=== PATIENT | female | born 2000 | race Caucasian/White ===

== ENCOUNTER 2024-02-06 05:45 | Inpatient (IN) | payer OTHER ==
[2024-02-06 06:44] VITALS: BMI 35.2
[2024-02-06] MEDS ORDERED: Docusate 100 MG CAP PO PRN (07:05)
[2024-02-06] MEDS ORDERED: HYDROcodone/Acetaminophen 5/325 mg Tablet PO PRN ×2 (07:05)
[2024-02-06] MEDS ORDERED: Acetaminophen 500 MG TAB PO PRN (07:05)
[2024-02-06] MEDS ORDERED: Lidocaine 1% (PF) 30 ML VIAL SC PRN (07:05)
[2024-02-06] MEDS ORDERED: Ondansetron PF 4 MG/2 ML Vial IVP PRN ×3 (07:05→17:36)
[2024-02-06] MEDS ORDERED: Oxytocin 30 units/NS 500 ML 500 ML IV SCH ×3 (07:05→17:45)
[2024-02-06] MEDS ORDERED: Diphenoxylate HCl/Atropine Tablet PO PRN ×2 (07:05)
[2024-02-06] MEDS ORDERED: Ibuprofen 800 MG TAB PO PRN (07:05)
[2024-02-06] MEDS ORDERED: Butorphanol Tartrate 1 MG/ML VIAL SLOW IVP PRN (07:05)
[2024-02-06] MEDS ORDERED: Promethazine HCl 25 MG/ML VIAL IM PRN ×2 (07:05→08:53)
[2024-02-06] MEDS ORDERED: Lactated Ringer's 1,000 ML IV SCH (07:05)
[2024-02-06] MEDS: Oxytocin 30 units/NS 500 ML 500 ML IV SCH (07:15)
[2024-02-06 07:40] LABS: Hemoglobin 12.1 g/dL (12.0-15.5); Mean Corpuscular HGB CONC 32.7 g/dL (32.0-36.0); Mean Corpuscular Hemoglobin 26.8 pg (27.0-33.0); Mean Platelet Volume 11.9 fL (7.4-10.4); Platelet Count 248 10x3/uL (150-450); RBC Distribution Width 15.8 % (11.5-14.5); Red Blood Cell (RBC) Count 4.51 10x6/uL (3.90-5.03); White Blood Cell (WBC) Count 11.2 10x3/uL (3.5-10.5)
[2024-02-06 07:51] LABS: HBsAg Index 0.18 S/CO (0-0.99); HIV (1/2) Antibody/Antigen Non-Reactive (NonReactive); HIV 1/2 INDEX 0.09 S/CO (<1.00); Hep B Surf Ag - L&D Non-Reactive S/CO (NonReactive); Syphilis Antibody Nonreactive (Nonreactive); Syphilis Antibody Index 0.04 S/CO (<1.00 Non-Reactive)
[2024-02-06] MEDS ORDERED: Bupivacaine 0.25% HCL 30 ML VIAL ONE (08:00)
[2024-02-06] MEDS ORDERED: ePHEDrine Sulfate 50 MG/10 ML VIAL SLOW IVP PRN (08:53)
[2024-02-06] MEDS ORDERED: Naloxone HCl 0.4 mg/ml Vial IVP PRN ×2 (08:53)
[2024-02-06] MEDS ORDERED: Acetaminophen 325 MG TAB PO PRN (08:53)
[2024-02-06] MEDS ORDERED: Moisturizing Cream (Eucerin) 113 GM JAR TOP PRN (08:53)
[2024-02-06] MEDS ORDERED: diphenhydrAMINE 50 MG/ML VIAL IVP PRN (08:53)
[2024-02-06] MEDS ORDERED: Communication Order-Pharmacy FS SCH (09:00)
[2024-02-06] MEDS: fentaNYL/Ropivacaine Epidural 100 ML ONE (09:12)
[2024-02-06] MEDS ORDERED: Lactated Ringer's 500 ML IV PRN (09:25)
[2024-02-06] MEDS: fentaNYL 2 mcg/Ropivacaine 0.2% Epidural 100 ML CADD EPIDURAL SCH (16:30)
[2024-02-06] MEDS: hydrALAZINE 20 MG/ML VIAL SLOW IVP PRN (16:35)
[2024-02-06 17:18] LABS: Analyzer IN Cardio CS NICU; RapidComm Collect By cbn
[2024-02-06 17:20] LABS: Analyzer IN Cardio CS NICU; RapidComm Collect By cbn
[2024-02-06] MEDS ORDERED: hydrALAZINE 20 MG/ML VIAL SLOW IVP PRN (17:36)
[2024-02-06] MEDS ORDERED: Preparation H Ointment 28 GM TUBE PR PRN (17:36)
[2024-02-06] MEDS ORDERED: Milk Of Magnesia 30 ML UDCUP PO PRN (17:36)
[2024-02-06] MEDS ORDERED: Lanolin Ointment 7 GM TUBE TOP PRN (17:36)
[2024-02-06] MEDS ORDERED: diphenhydrAMINE 25 MG CAP PO PRN (17:36)
[2024-02-06] MEDS ORDERED: Methylergonovine 0.2 MG/ML VIAL IM PRN (17:36)
[2024-02-06] MEDS ORDERED: Benzocaine-Menthol 82.5 ML CAN TOP PRN (17:36)
[2024-02-06] MEDS ORDERED: Bisacodyl 10 MG SUPP PR PRN (17:36)
[2024-02-06] MEDS ORDERED: Witch Hazel 100 PAD JAR TOP PRN ×2 (17:38)
[2024-02-06] MEDS: Calcium Carbonate 500 MG ChewTAB PO SCH (21:56)
[2024-02-06] MEDS: Oxytocin 30 units/NS 500 ML 500 ML ONE (21:57)
[2024-02-06] MEDS: Ibuprofen 800 MG TAB PO SCH (22:26)
[2024-02-06] MEDS: Docusate 100 MG CAP PO SCH (22:26)
[2024-02-07 03:54] LABS: Hematocrit 31.1 % (34.9-44.5); Hemoglobin 10.1 g/dL (12.0-15.5); Mean Corpuscular HGB CONC 32.5 g/dL (32.0-36.0); Mean Corpuscular Hemoglobin 26.9 pg (27.0-33.0); Mean Corpuscular Volume 82.9 fL (81.6-98.3); Mean Platelet Volume 11.8 fL (7.4-10.4); Platelet Count 224 10x3/uL (150-450); Red Blood Cell (RBC) Count 3.75 10x6/uL (3.90-5.03); White Blood Cell (WBC) Count 12.7 10x3/uL (3.5-10.5)
[2024-02-07] MEDS: Boostrix 0.5 ML (Tdap) VIAL (>/=7 yrs of age) IM ONE (08:04)
[2024-02-07] MEDS: Ferrous Sulfate 325 MG TAB PO SCH (08:05)
[2024-02-07] MEDS: Prenatal Vitamin 1 TAB PO SCH (08:29)
[2024-02-07] MEDS ORDERED: Zolpidem Tartrate 5 MG TAB PO PRN (09:00)
[2024-02-07] MEDS ORDERED: HYDROcodone/Acetaminophen 5/325 mg Tablet PO PRN ×2 (09:00)
[2024-02-08] MEDS ORDERED: Witch Hazel 100 PAD JAR TOP PRN (07:46)
[2024-02-08 08:25] VITALS: BP 113/65; TEMP 97.9
== END 2024-02-08 16:40 | disposition home or self-care (01) | DRG 807 ==
LOC: CSHLD 05:45 → CSHPP 21:15
PROVIDERS: ADMIT Obstetrics & Gynecology; ATTEND Obstetrics & Gynecology
PROC: 10E0XZZ Delivery of Products of Conception, External Approach (ICD-10-PCS; principal; 2024-02-06)
PROC: 0KQM0ZZ Repair Perineum Muscle, Open Approach (ICD-10-PCS; 2024-02-06)
PROC: 10907ZC Drainage of Amniotic Fluid, Therapeutic from Products of Conception, Via Natural or Artificial Opening (ICD-10-PCS; 2024-02-06)
PROC: 10H07YZ Insertion of Other Device into Products of Conception, Via Natural or Artificial Opening (ICD-10-PCS; 2024-02-06)
DX: O36.5930 Maternal care for other known or suspected poor fetal growth, third trimester, not applicable or unspecified (principal); Z37.0 Single live birth; O99.02 Anemia complicating childbirth; D64.9 Anemia, unspecified; Z3A.37 37 weeks gestation of pregnancy; O70.1 Second degree perineal laceration during delivery
CPT/HCPCS: 36415; 51702; 82805; 85027; 86780; 86850; 86900; 86901; 87340; 87389; 88307; J0360; J0665; J2590